=== PATIENT | female | born 2000 | race Caucasian/White ===

== ENCOUNTER 2022-07-04 08:59 | Inpatient (IN) | payer OTHER, SELFPAY ==
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
[2022-07-04 09:42] VITALS: BP 124/91; PULSE 101; RESP 18; TEMP 36.8; O2SAT 93; BMI 23.4
[2022-07-04 10:35] LABS: Influenza A PCR NEGATIVE (Negative); Influenza B PCR NEGATIVE (Negative); Resp Syncy Virus RNA Qual PCR NEGATIVE (Negative); SARS COV2 PCR INHOUSE NEGATIVE (Negative)
[2022-07-04 10:57] LABS: MANUAL DIFF FLAG NO
[2022-07-04 11:01] LABS: Basophils Percent Auto 0.3 % (0-2); Eosinophils Absolute Auto 0.5 X10*3/uL (0.0-0.4); Eosinophils Percent Auto 4.7 % (0-4); Hemoglobin 12.3 g/dl (12.0-16.0); Imm Gran Abs Auto 0.02 X10*3/uL (0.00-0.03); Imm Gran Pct Auto 0.2 % (0.0-0.4); Lymphocytes Absolute Auto 2.6 X10*3/uL (1.2-4.9); Lymphocytes Percent Auto 26.9 % (20-40); Mean Corpuscular HGB Conc 34.2 g/dl (31.0-35.0); Mean Corpuscular Hemoglobin 29.4 pg (27.0-33.0); Mean Corpuscular Volume 85.9 fL (80.0-98.0); Mean Platelet Volume 9.8 fL (9.4-12.3); Monocytes Absolute Auto 0.7 X10*3/uL (0.1-1.2); Monocytes Percent Auto 7.5 % (2-11); Neutrophils Absolute Auto 5.8 x10*3/uL (2.0-8.3); Neutrophils Percent Auto 60.4 % (45-73); Platelet Count 271 X10*3/uL (160-400); Red Blood Count 4.19 X10*6/uL (4.20-5.50); Red Cell Distribution Width 12.7 % (11.0-16.0); White Blood Count 9.5 X10*3/uL (4.8-10.8)
[2022-07-04 11:29] LABS: Alanine Aminotransferase 8 U/L (0-31); Albumin Level 4.2 g/dL (3.5-5.0); Alkaline Phosphatase 71 U/L (39-117); Anion Gap 11 (12-20); Aspartate Amino Transferase 12 U/L (5-31); Bilirubin Direct < 0.2 mg/dL (0.0-0.5); Blood Urea Nitrogen 5 mg/dL (9-16); Calcium 8.8 mg/dL (8.4-10.2); Carbon Dioxide 23 mmol/L (22-29); Chloride 109 mmol/L (96-108); Creatinine Clr Calc Pharmacy 105.6; Estimated Glomerular Filt Rate > 60; Ethanol 98 mg/dL; Glucose Random 118 mg/dL (60-115); Magnesium 1.8 mg/dL (1.6-2.6); Potassium 3.4 mmol/L (3.3-5.1); Sodium 140 mmol/L (135-145); Total Protein 6.7 g/dL (6.5-8.0)
[2022-07-04 12:18] LABS: Bilirubin Total 0.2 mg/dL (0.0-1.0)
--- NOTE | 2022-07-04 15:03 | PC.NURSE ---
Report from merle Cooper in their room resting in bed quietly at this time, MARIBELL.
--- NOTE | 2022-07-04 16:24 | PC.NURSE ---
Pt provided with urine cup for u-tox and t/w explained that a sample was needed to complete the admission process. Pt took cup and began drinking some orange juice. Pt proceeded to walk to bathroom, was in bathroom briefly and then came back out without a urine sample. When t/w followed up with the pt, she stated I do not feel comfortable using those bathrooms' pt would not elaborate on her statement, t/w offered to stand outside the door to make sure no one came in, and pt continues to decline providing a urine at this time.
[2022-07-04 17:13] LABS: Amphetamine Screen Urine Not Detected (Not Detect); Barbiturates, Urine Not Detected (Not Detect); Benzodiazepines Screen Urine Not Detected (Not Detect); Cannabinoid Screen Urine Not Detected (Not Detect); Cocaine Screen Urine Not Detected (Not Detect); Fentanyl, urine Not Detected (Not Detect); Opiate Screen Urine Not Detected (Not Detect); Phencyclidine Screen Urine Not Detected (Not Detect)
[2022-07-04 18:09] LABS: Urine Pregnancy NEGATIVE (NEGATIVE)
[2022-07-04 18:10] LABS: UPreg QC Valid YES
[2022-07-04 18:23] VITALS: BP 118/77; PULSE 64; TEMP 36.6; O2SAT 98
--- NOTE | 2022-07-04 22:27 | PC.NURSE ---
Pt reports she does not have a need to sign the release paperwork, has no PCP, does not want to sign release for family/friends, has no therapist or psychiatrist. Pharmacy is [facility] [address] in [facility], but states I don't take any medicine . Pt declined to sign release for [employer].
--- NOTE | 2022-07-05 00:25 | PC.NURSE ---
CIWA-upset when woken for assessment. polite but direct. ''I'm fine, I only drank for a few days''
[2022-07-05 07:00] VITALS: BMI 22.7
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
--- NOTE | 2022-07-05 14:24 | PC.NURSE ---
Yokasta is discharged home per MD order. She denies ideation, plan or intent to to harm self or others. She denies physical complaint
== END 2022-07-05 15:41 | disposition home or self-care (01) | DRG 754 ==
LOC: HO.ED 15:13 → HO.PADLT16 17:45
PROVIDERS: Physician Assistant; Admitting Provider Psychiatry & Neurology Psychiatry; Emergency Provider Student in an Organized Health Care Education/Training Program; Visit Provider Psychiatry & Neurology Psychiatry
DX: F32.A Depression, unspecified (principal); R45.851 Suicidal ideations; F10.129 Alcohol abuse with intoxication, unspecified; F17.210 Nicotine dependence, cigarettes, uncomplicated; F43.12 Post-traumatic stress disorder, chronic; Z20.822 Contact with and (suspected) exposure to COVID-19; Z62.810 Personal history of physical and sexual abuse in childhood; Z56.0 Unemployment, unspecified; Z71.6 Tobacco abuse counseling; Y90.4 Blood alcohol level of 80-99 mg/100 ml; Z91.52 Personal history of nonsuicidal self-harm; Z79.899 Other long term (current) drug therapy
CPT/HCPCS: 0241U; 36415; 80048; 80076; 80307; 81025; 82077; 83735; 85025; 99284

== ENCOUNTER 2025-01-04 08:27 | Emergency (ER) | payer OTHER, SELFPAY ==
[2025-01-04 08:32] VITALS: BP 111/75; PULSE 93; RESP 16; TEMP 36.3; O2SAT 99; BMI 24.9
--- NOTE | 2025-01-04 08:42 | ED_ITS ---
HPI - Eye Problem General Chief complaint: Eye Problems Stated complaint: L Eye Injury Time Seen by Provider: 01/04/25 08:38 Source: patient Mode of arrival: ambulatory Limitations: no limitations History of Present Illness ED Provider: GERMANIA MEZA PA-C HPI Narrative: 24-year-old female with pmhx significant for ETOH use disorder, depression, PTSD presents to the ED today for evaluation of left eye irritation and tearing since last night. She states that she was playing around with her son when she accidentally poked herself in her left eye. Since this time has noted irritation to the left eye with excessive tearing. She feels as though something is in her eye. Attempted to irrigate the eye at home without improvement. She does not wear corrective lenses. Denies any discharge from the eye. Denies any pain on ocular movements. Related Data Previous Rx's ?Medication ?Instructions ?Recorded disulfiram 500 mg tablet 500 mg PO DAILY 30 days #30 tabs 07/05/22 erythromycin 5 mg/gram (0.5 %) eye 1 appl ophthalmic-L eft QID 7 days 01/04/25 ointment #3.5 grams Allergies Allergy/AdvReac Type Severity Reaction Status Date / Time Horse/Equine Containing Allergy Unknown RASH Verified 01/04/25 08:33 Products (HORSE/EQUINE CONTAINING PRODUCTS) pumpkin (PUMPKIN) Allergy Unknown RASH Verified 01/04/25 08:33 Review of Systems Review of Systems: Constitutional: No fever, chills, fatigue, night sweats, weight changes ENT/Mouth: No ear pain, hearing loss, nasal congestion, sinus pain, rhinorrhea, sore throat Eyes: No eye pain, swelling, redness, vision changes, discharge, +L eye irritations/ tearing Cardio: No chest pain, palpitations, WALTER, orthopnea, peripheral edema Pulm: No SOB, cough, sputum, wheezing, dyspnea, hemoptysis GI: No nausea, vomiting, hematemesis, abdominal pain, diarrhea, constipation, hematochezia, melena : No irregular bleeding, dysuria, frequency, urgency, hesitancy, hematuria, flank pain, urinary flow changes, urinary incontinence or retention MSK: No back pain, neck pain, joint pain, myalgias Skin: No lesions, rashes Neuro: No weakness, numbness, paresthesias, LOC, dizziness, headache Psych: No anxiety/panic, depression, SI/HI, AH/VH All other systems reviewed and are negative. [facility] Past Medical History Attestation statement: The following information was validated with the patient. Source: old records reviewed and nursing notes reviewed Social History Social History Household Members: None Housing: Apartment Do you presently have visiting nurse or other home services: No Patient Tobacco Use Status: Current everyday Tobacco user Smoked in Last 30 Days: No e-Cigarette/Vaping Use: Currently Using Second Hand Smoke Exposure: No Advance Directives: No Advance Directives Information Provided: Yes service: No Sexual orientation: Don't Know Physical Exam Vital Signs: Vital Signs: Last Vital Signs Temp 97.3 F 01/04/25 08:32 Pulse 93 01/04/25 08:32 Resp 16 01/04/25 08:32 BP 111/75 01/04/25 08:32 Pulse Ox 99 01/04/25 08:32 O2 Del Method Room Air 01/04/25 08:32 BMI result Body Mass Index 24.9 Vital signs stable, afebrile General: Well appearing, in no acute distress. Skin: Warm, dry, intact. No rashes or lesions. Head: Normocephalic, atraumatic. EENT: Hearing is intact b/l No periorbital swelling. No enophthalmous or exopthalmous. EOMs intact without pain or entrapment. PERRLA. Positive L photophobia. No obvious foreign body or abrasion. Noted conjunctival injection to left eye, no chemosis. No hazy cornea. Visual acuity OD 20/20. OS 20/20, OU 20/20. On tetracaine exam, small area of circular reuptake noted to 4oclock of left cornea concerning for abrasion. No ulceration. No dendritic lesions. Cardiac: Chest wall symmetric Lungs: Normal respiratory effort without accessory muscle use Ext: Upper and lower extremities atraumatic, without tenderness, deformity, swelling or erythema Neuro: AOx3. Normal speech. Ambulating with steady gait. Course Course Course Narrative: Patient's exam is consistent with corneal abrasion. visual acuity normal. will send patient home with erythromycin eye ointment. referral to ophthalmology provided. Patient has remained stable throughout ED visit today. Discussed worrisome signs and symptoms and when to return to the ED. All questions answered at this time. Patient is agreeable with disposition and stable for discharge. Medications Administered Discontinued Medications Generic Name Dose Route Start Last Admin Trade Name Mehnaz PRN Reason Stop Dose Admin Fluorescein Sodium 1 strip 01/04/25 08:42 01/04/25 09:15 Fluorescein Sodium Strip EYE-LEFT 01/04/25 08:43 1 strip ONCE ONE Administration Tetracaine HCl 1 drop 01/04/25 08:42 01/04/25 09:16 Tetracaine Hcl/Pf 0.5% Oph Lisa 4 Ml Drops EYE-LEFT 01/04/25 08:43 1 drop ONCE ONE Administration Medical Decision Making Medical Decision Making MDM Narrative: 24-year-old female with pmhx significant for ETOH use disorder, depression, PTSD presents to the ED today for evaluation of left eye irritation and tearing since last night. Vital signs stable. on exam, small area of circular reuptake noted to 4oclock of left cornea concerning for abrasion. Differential diagnosis includes corneal abrasion, corneal foreign body. Presentation not consistent with viral vs bacterial conjunctivitis, allergic conjunctivitis. Unlikely preseptal or orbital cellulitis, acute angle closure glaucoma, iritis, keratitis, scleritis, uveitis, herpes ophthalmicus. Plan for visual acuity, tetracaine/fluorescein exam, disposition. Differential Diagnosis Differential Diagnoses: The differential diagnosis associated with the presentation includes as above. Admission/Observation Not indicated External Record Review External record reviewed: Inpatient record Prescription Management I considered prescription management with: Antibiotic (Erythromycin) Social Determinants Patient?s care significantly limited by Social Determinants of Health including: Other Social Determinant of Health Critical Care Time Critical Care Time Critical Care Time: No Discharge Plan Discharge Clinical Impression: Corneal abrasion, left Patient Disposition: Home, Self-Care Instructions: Corneal Abrasion (ED) Additional Instructions: You were evaluated in the ED today for left eye irritation/tearing. Your exam shows an abrasion to your left cornea. I am sending erythromycin eye ointment to your pharmacy. Apply this to the eye 4 times daily for 7 days. Follow up with your textile pin worker and PCP. If you do not have an textile pin worker a referral has been provided to you. You may call them to establish care. They will not call you. Return with any new or worsening symptoms. In the case of an emergency call 911. Prescriptions: New erythromycin 5 mg/gram (0.5 %) ointment 1 appl ophthalmic-Left QID 7 Days Qty: 3.5 0RF No Action disulfiram 500 mg tablet 500 mg PO DAILY 30 Days Qty: 30 0RF Referrals: Johnson Caro [Physician, Ophthalmology] Physician,None [Primary Care Provider, Medical] Print Language: Unable To Collect
[2025-01-04] MEDS: Fluorescein Sodium STRIP 1 STRIP EYE-LEFT (09:15)
[2025-01-04] MEDS: Tetracaine HCl/PF 0.5% Oph Sol 4 ML DROPS 1 DROP EYE-LEFT (09:16)
[2025-01-04 09:45] VITALS: BP 111/75; PULSE 93; RESP 16; TEMP 36.3; O2SAT 99
== END 2025-01-04 09:46 | disposition home or self-care (01) ==
PROVIDERS: Emergency Provider Emergency Medicine
DX: S05.02XA Injury of conjunctiva and corneal abrasion without foreign body, left eye, initial encounter (principal); F17.210 Nicotine dependence, cigarettes, uncomplicated; H53.142 Visual discomfort, left eye; X58.XXXA Exposure to other specified factors, initial encounter; Y93.9 Activity, unspecified; Y92.9 Unspecified place or not applicable; Y99.8 Other external cause status
CPT/HCPCS: 99283; 99284

== ENCOUNTER 2025-01-12 15:44 | Emergency (ER) | payer OTHER, SELFPAY ==
--- NOTE | ~2025-01-12 | XR_ITS ---
CLINICAL HISTORY: chest pain 2 view chest x-ray Comparison: None provided Findings: The lungs are clear. Heart size is normal. No acute fracture. IMPRESSION: No acute cardiopulmonary process. This document has been electronically signed by: Yolette Sykes DO on 01/12/2025 17:34:45
--- NOTE | 2025-01-12 15:47 | ECG_ITS ---
Test Reason : chest pain Blood Pressure : */* mmHG Vent. Rate : 91 BPM Atrial Rate : 91 BPM P-R Int : 136 ms QRS Dur : 94 ms QT Int : 372 ms P-R-T Axes : 65 -6 -1 degrees QTcB Int : 457 ms Normal sinus rhythm Normal ECG When compared with ECG of 10-Jan-2019 17:20, Incomplete right bundle branch block is no longer Present Referred By: Generic ED Physician Electronically Signed By: ARBEN LOPEZ MD
[2025-01-12 16:23] VITALS: BP 123/86; PULSE 78; RESP 16; TEMP 36.7; O2SAT 99; BMI 24.9
--- NOTE | 2025-01-12 16:23 | ED.CHESTPAIN ---
HPI - Chest Pain General Chief Complaint: Chest Pain Stated Complaint: chest pain/face keeps getting numb Time Seen by Provider: 01/12/25 18:24 Source: patient Mode of arrival: ambulatory Limitations: no limitations History of Present Illness ED Provider: Robin SANDOVAL HPI narrative: The patient is a 24-year-old female presenting to the ED for evaluation of chest heaviness, perioral paresthesias, and bilateral hand paresthesias which began around 13:00 today. The patient reports she did not drink daily however has been drinking heavily over the past 3 days with last alcohol use last night. Patient reports she awoke today feeling well however around 13:00 she developed chest heaviness while sitting watching TV. Patient reports she became nervous about the chest heaviness and began breathing heavily. Patient reports after beginning to breathe heavily she developed perioral paresthesias and bilateral hand numbness. The patient denies associated fever/chills, nausea, vomiting, abdominal pain, diarrhea, dysuria, hematuria, back pain, recent sick contacts, recent fall or blunt head trauma, or similar previous symptoms. The patient reports since arriving in the ED her paresthesias have improved, reports some persistent chest heaviness. Related Data Previous Rx's ?Medication ?Instructions ?Recorded disulfiram 500 mg tablet 500 mg PO DAILY 30 days #30 tabs 07/05/22 erythromycin 5 mg/gram (0.5 %) eye 1 appl ophthalmic-Left QID 7 days 01/04/25 ointment #3.5 grams Allergies Allergy/AdvReac Type Severity Reaction Status Date / Time Horse/Equine Containing Allergy Unknown RASH Verified 01/12/25 16:26 Products (HORSE/EQUINE CONTAINING PRODUCTS) pumpkin (PUMPKIN) Allergy Unknown RASH Verified 01/12/25 16:26 Review of Systems Review of Systems: Yes all other systems are reviewed and are negative PMFSH Social History Social History Household Members: None Housing: Apartment Do you presently have visiting nurse or other home services: No Patient Tobacco Use Status: Current everyday Tobacco user Smoked in Last 30 Days: Yes e-Cigarette/Vaping Use: Currently Using Second Hand Smoke Exposure: No Advance Directives: No Advance Directives Information Provided: No Do you have a plan to hurt others: No Plan service: No Sexual orientation: Don't Know Physical Exam Vital Signs: Vital Signs: Last Vital Signs Temp 97.5 F 01/12/25 21:38 Pulse 73 01/12/25 21:38 Resp 13 01/12/25 21:38 BP 123/86 01/12/25 21:38 Pulse Ox 98 01/12/25 21:38 O2 Del Method Room Air 01/12/25 21:38 BMI result Body Mass Index 24.9 CONSTITUTIONAL: The patient appears non-toxic, well nourished and in no acute distress. Vital signs as documented. HEAD: Atraumatic, normocephalic. EYES: EOMs grossly intact, pupils equal, conjunctiva clear, no exudate. ENT: Nares patent, no discharge. Airway patent, no audible stridor, visible mucosa is pink and moist without noted lesions. NECK: Trachea is midline, no obvious masses or gross abnormalities. CHEST: Symmetric movement, normal appearance. LUNGS: LS present and CTAB, no w/r/r. Non-labored work of breathing. CARDIAC: Regular Rhythm, S1/S2 appreciated, no murmurs, rubs or gallops. ABDOMEN: Abdomen soft and non-tender x4 quadrants, no palpable masses or organomegaly. Negative CVAT bilaterally. : Deferred. EXTREMITIES: Normal tone, moves all extremities spontaneously without reported pain. No obvious acute injury or deformity noted. NEURO: Alert and oriented x3, CN II-XII intact. Cerebellar Functioning intact. No sensory or motor deficits. Speech clear and appropriate. PSYCH: normal affect, appropriate eye contact, fluid speech, with appropriate response to questioning. No reported suicidality or homicidality. SKIN: Warm, dry, color appropriate, normal turgor. No rashes noted. Course Course Course Narrative: This is an RME performed by Lazaro Taylor CNP: Additional HPI, ROS, PE not included below will be deferred to primary provider. patient is a 24-year-old female who presents emergency department for evaluation. She will be reports at approximately 13:00 she began experiencing chest pain radiating the left breast. Typically loss approximately 10 seconds before self-resolving. Was occurred numerous times since then. Endorses associated facial numbness and bilateral hand numbness from pain. She does admit to excessive alcohol consumption over the past 3 days, [employer] shop daily, denies history of alcohol withdrawal last drink yesterday. She plans to stop drinking and vaping entirely, thus her recent excessive usage, prior to that was not drinking daily. She declines interest in detox. Plan: Serum labs, ECG Medications Administered Discontinued Medications Generic Name Dose Route Start Last Admin Trade Name Mehnaz PRN Reason Stop Dose Admin Ibuprofen 600 mg 01/12/25 20:57 01/12/25 21:02 Ibuprofen 600 Mg Tablet PO 01/12/25 20:58 600 mg ONCE ONE Administration Magnesium Oxide 400 mg 01/12/25 19:46 01/12/25 19:59 Magnesium Oxide 400 Mg Tablet PO 01/12/25 19:47 400 mg ONCE ONE Administration Medical Decision Making Medical Decision Making [facility] Narrative: 9:22 PM 01/12/2025 (Meka SANDOVAL): The patient is a 24-year-old female presenting to the ED for evaluation of perioral and bilateral hand paresthesias as well as chest heaviness since 13:00. The patient's paresthesias began after breathing heavily secondary to her concern for the chest heaviness. The patient in the ED reports paresthesias have resolved, chest heaviness has improved but not entirely resolved. The patient is exam is markedly reassuring, no acute findings. The patient's laboratory evaluation shows negative troponin x2, there is no evidence of leukocytosis, left shift, or ALONDRA. The patient's laboratory evaluation does show mild hypomagnesemia, repleted orally. The patient in the ED is requesting a test, test has now resulted and is negative. Patient's chest x-ray shows no acute cardiopulmonary process, no consolidation. The patient also reports she has not eaten or drank since arriving in the ED, reports developing a headache since arriving in the ED, patient provided p.o. fluids and solids, headache treated with ibuprofen. Patient is mostly suffering from paresthesias secondary to hypercarbia. Seeing as the patient's paresthesias have resolved and the patient has successfully completed a p.o. challenge, and the patient's exam, laboratory workup, cardiac enzymes, EKG, and chest x-ray are reassuring, patient will be discharged to follow up outpatient. Differential Diagnosis CAD, pneumonia, hyperventilation syndrome, alcohol withdrawal, hypomagnesemia Admission/Observation Consideration of admission/observation: Escalation of care including admission/observation considered Lab Data [facility] Lab Attestation statement: I reviewed the patient's lab results. 01/12/25 16:59 01/12/25 16:59 Labs: Lab Results 01/12/25 01/12/25 01/12/25 Range/Units 16:59 19:50 21:00 WBC 9.6 (4.8-10.8) X10*3/uL RBC 4.15 L (4.20-5.50) X10*6/uL Hgb 12.4 (12.0-16.0) g/dl Hct 36.2 L (37.0-47.0) % MCV 87.2 (80.0-98.0) fL MCH 29.9 (27.0-33.0) pg MCHC 34.3 (31.0-35.0) g/dl RDW 12.8 (11.0-16.0) % Plt Count 290 (160-400) X10*3/uL MPV 10.0 (9.4-12.3) fL Immature Gran % (Auto) 0.5 H (0.0-0.4) % Neut % (Auto) 59.0 (45-73) % Lymph % (Auto) 25.0 (20-40) % [place] % (Auto) 7.3 (2-11) % Eos % (Auto) 7.7 H (0-4) % Baso % (Auto) 0.5 (0-2) % Lymph # (Auto) 2.4 (1.2-4.9) X10*3/uL [place] # (Auto) 0.7 (0.1-1.2) X10*3/uL Eos # (Auto) 0.7 H (0.0-0.4) X10*3/uL Baso # (Auto) 0.1 (0.0-0.2) X10*3/uL Abs Immat Gran (auto) 0.05 H (0.00-0.03) X10*3/uL Absolute Neuts (auto) 5.6 (2.0-8.3) x10*3/uL Absolute Nucleated RBC 0.000 (0.0-0.012) X10*3/uL Nucleated RBC % (auto) 0.0 (0.0-0.2) /100WBC Sodium 141 (135-145) mmol/L Potassium 3.6 (3.3-5.1) mmol/L Chloride 110 H (96-108) mmol/L Carbon Dioxide 23 (22-29) mmol/L Anion Gap 12 (12-20) BUN 10 (9-16) mg/dL Creatinine 0.85 (0.5-1.4) mg/dL Estim Creat Clear Calc 95.2 Estimated GFR > 60 Random Glucose 85 (60-115) mg/dL Calcium 8.2 L D (8.4-10.2) mg/dL Magnesium 1.5 L (1.6-2.6) mg/dL Total Bilirubin 0.4 (0.0-1.0) mg/dL AST 18 (5-31) U/L ALT 10 (0-31) U/L Alkaline Phosphatase 103 (39-117) U/L Troponin I High Sens < 2.7 < 2.7 (<3.5-17.0) ng/L Total Protein 6.6 (6.5-8.0) g/dL Albumin 4.2 (3.5-5.0) g/dL Lipase 12 (8-78) U/L Urine Test NEGATIVE (NEGATIVE) Independent Interpretation I performed an independent interpretation of an: EKG (EKG shows sinus rhythm with a rate of 91, no evidence of acute ischemia, no ST elevation, no ectopy. QTC 457. Compared to previous on 01/10/2019 reported incomplete right bundle-branch block is no longer present, no other acute morphology changes. ) Radiology Impression Discussion of test interpretation with radiology: I have reviewed the radiologist's reading. Radiologist Impression: CLINICAL HISTORY: chest pain 2 view chest x-ray Comparison: None provided Findings: The lungs are clear. Heart size is normal. No acute fracture. IMPRESSION: No acute cardiopulmonary process. This document has been electronically signed by: Yolette Sykes DO on 01/12/2025 17:34:45 Prescription Management I considered prescription management with: Pain Medication and Antibiotic Discharge Plan Discharge Clinical Impression: Non-cardiac chest pain, Acute hyperventilation syndrome Patient Disposition: Home, Self-Care Instructions: Hyperventilation (ED), Noncardiac Chest Pain (ED) Additional Instructions: Thank you for choosing [facility]'s Emergency Department for your care today. Thankfully your laboratory evaluation, EKG, cardiac enzymes, chest x-ray, and exam today are all reassuring. There is no evidence of any acute infectious, cardiac, pulmonary, or other dangerous cause for your symptoms. Your numbness/tingling symptoms were most likely related to your heavy breathing after experiencing the chest heaviness. At this time there is no evidence of an acute process requiring admission to the hospital or continued ED observation, and it is safe to discharge you home. Your magnesium level was slightly low today, this may be due to your excessive alcohol use over the past 3 days, and this may have contributed to your tingling/numbness. Please do not use alcohol in excess as is generally not good for your health, and put you at increased risk for irreversible liver damage and decreased quality of life, as well as increased risk for otherwise avoidable injury. You may take alternating (staggered) doses of ibuprofen 600mg and Tylenol 1000mg every 4 hours as needed for any additional pain. Please stay well hydrated and get plenty of rest. Please follow up with your primary care physician for re-evaluation, additional management of your symptoms, and continued preventative care. If you do not have a primary care physician, please call the [facility] at [phone] to establish a new primary care physician. While waiting to establish your new primary care physician, you can call our [facility] at [phone] for non-emergency needs. Please return to the emergency department if you develop a severe or sudden change in your symptoms, a fever over 100.4 that does not improve with Tylenol or Ibuprofen, recurrent vomiting, or any other new or worsening symptoms or concerns. Prescriptions: No Action disulfiram 500 mg tablet 500 mg PO DAILY 30 Days Qty: 30 0RF erythromycin 5 mg/gram (0.5 %) ointment 1 appl ophthalmic-Left QID 7 Days Qty: 3.5 0RF Referrals: Physician,None [Primary Care Provider, Medical] Clinical Impression: Non-cardiac chest pain; Acute hyperventilation syndrome Interventions: ED Discharge Assessment Last Done: 01/12/25 21:38 Discharge Date/Time: 01/12/25 21:39 Print Language: Unable To Collect
[2025-01-12 17:06] LABS: MANUAL DIFF FLAG NO
[2025-01-12 17:15] LABS: Hematocrit 36.2 % (37.0-47.0); Hemoglobin 12.4 g/dl (12.0-16.0); Imm Gran Abs Auto 0.05 X10*3/uL (0.00-0.03); Imm Gran Pct Auto 0.5 % (0.0-0.4); Lymphocytes Absolute Auto 2.4 X10*3/uL (1.2-4.9); Mean Corpuscular HGB Conc 34.3 g/dl (31.0-35.0); Mean Corpuscular Hemoglobin 29.9 pg (27.0-33.0); Mean Corpuscular Volume 87.2 fL (80.0-98.0); NRBC Abs Auto 0.000 X10*3/uL (0.0-0.012); NRBC Pct Auto 0.0 /100WBC (0.0-0.2); Platelet Count 290 X10*3/uL (160-400); Red Blood Count 4.15 X10*6/uL (4.20-5.50); White Blood Count 9.6 X10*3/uL (4.8-10.8)
[2025-01-12 17:43] LABS: Alanine Aminotransferase 10 U/L (0-31); Albumin Level 4.2 g/dL (3.5-5.0); Alkaline Phosphatase 103 U/L (39-117); Anion Gap 12 (12-20); Aspartate Amino Transferase 18 U/L (5-31); Blood Urea Nitrogen 10 mg/dL (9-16); Calcium 8.2 mg/dL (8.4-10.2); Carbon Dioxide 23 mmol/L (22-29); Chloride 110 mmol/L (96-108); Creatinine Clr Calc Pharmacy 95.2; Estimated Glomerular Filt Rate > 60; Lipase 12 U/L (8-78); Magnesium 1.5 mg/dL (1.6-2.6); Potassium 3.6 mmol/L (3.3-5.1); Sodium 141 mmol/L (135-145); Total Protein 6.6 g/dL (6.5-8.0)
[2025-01-12 17:54] LABS: Troponin-I High Sensitivity < 2.7 ng/L (<3.5-17.0)
[2025-01-12 18:09] VITALS: BP 118/87; PULSE 65; RESP 13; TEMP 36.6; O2SAT 99
[2025-01-12 19:23] VITALS: BP 130/77; PULSE 70; RESP 15; TEMP 37.1; O2SAT 98
[2025-01-12 20:16] LABS: Troponin-I High Sensitivity < 2.7 ng/L (<3.5-17.0)
[2025-01-12 21:12] LABS: UPreg QC Valid YES
[2025-01-12 21:35] VITALS: BP 123/86; PULSE 73; RESP 13; TEMP 36.4; O2SAT 98
[2025-01-12 21:38] VITALS: BP 123/86; PULSE 73; RESP 13; TEMP 36.4; O2SAT 98
== END 2025-01-12 21:39 | disposition home or self-care (01) ==
PROVIDERS: Nurse Practitioner Family; Physician Assistant; Emergency Provider Emergency Medicine
DX: R07.89 Other chest pain (principal); R20.0 Anesthesia of skin; R51.9 Headache, unspecified; F17.210 Nicotine dependence, cigarettes, uncomplicated; Z79.899 Other long term (current) drug therapy
CPT/HCPCS: 36415; 71046; 80053; 81025; 83690; 83735; 84484; 85025; 93005; 99283; 99285

== ENCOUNTER → 2025-01-12 15:47 | Outpatient (BNV) | payer OTHER, SELFPAY | PROVIDERS: Emergency Provider Emergency Medicine; Visit Provider Internal Medicine Cardiovascular Disease | DX: R07.89 Other chest pain (principal) | CPT/HCPCS: 93010 ==

== ENCOUNTER → 2025-01-12 16:30 | Outpatient (BNV) | payer OTHER, SELFPAY | PROVIDERS: Visit Provider Radiology Diagnostic Radiology | DX: R07.9 Chest pain, unspecified (principal) | CPT/HCPCS: 71046 ==